=== PATIENT | female | born 1980 ===

== ENCOUNTER 2017-11-20 13:09 | Inpatient (IN) | payer OTHER ==
--- NOTE | 2017-11-20 14:10 | ED PDOC ---
HPI: General Adult Time Seen by Provider: 11/20/17 13:29 Chief Complaint (Nursing): Breast Problem Chief Complaint (Provider): Left Breast Pain and Swelling History Per: Patient History/Exam Limitations: no limitations Onset/Duration Of Symptoms: Days (x2 weeks) Current Symptoms Are (Timing): Still Present Additional Complaint(s): 36 year old female presents to the ED for evaluation of left sided breast pain and swelling for the last two weeks. She reports initially the symptoms were mild, but have continued and a scant brownish nipple discharge was pesent a couple days ago. Pt. denies fever, and denies any personal or family hx of breast, uterine, or ovarian cancer. PMD: none provided Past Medical History Reviewed: Historical Data, Nursing Documentation, Vital Signs Vital Signs: Last Vital Signs Temp 97 F L 11/20/17 13:20 Pulse 81 11/20/17 13:20 Resp 16 11/20/17 13:20 BP 108/72 11/20/17 13:20 Pulse Ox 99 11/20/17 13:20 - Medical History PMH: No Chronic Diseases - Surgical History Surgical History: No Surg Hx - Family History Family History: States: No Known Family Hx - Immunization History Hx Tetanus Toxoid Vaccination: No - Home Medications Home Medications: Ambulatory Orders Medication Instructions Recorded Cefpodoxime [Vantin] 200 mg PO BID #20 tab 10/26/17 Oseltamivir Phosphate [Tamiflu] 75 mg PO BID #10 capsule 10/26/17 RX: Acetaminophen [Pain Relief 500 mg PO QID PRN #30 tablet 10/26/17 Extra Strength] - Allergies Allergies/Adverse Reactions: Allergies Allergy/AdvReac Type Severity Reaction Status Date / Time No Known Allergies Allergy Verified 11/20/17 13:19 Review of Systems ROS Statement: Except As Marked, All Systems Reviewed And Found Negative Constitutional: Negative for: Fever Musculoskeletal: Positive for: Other (left sided breast pain and swelling with scant brown nipple discharge) Physical Exam - Reviewed Nursing Documentation Reviewed: Yes Vital Signs Reviewed: Yes - Physical Exam Appears: Positive for: No Acute Distress Head Exam: Positive for: ATRAUMATIC, NORMOCEPHALIC Skin: Positive for: Normal Color. Negative for: Rash Eye Exam: Positive for: Normal appearance Neck: Positive for: Normal, Painless ROM, Supple Cardiovascular/Chest: Positive for: Regular Rate, Rhythm Respiratory: Positive for: Normal Breath Sounds. Negative for: Accessory Muscle Use, Respiratory Distress Gastrointestinal/Abdominal: Positive for: Normal Exam, Soft. Negative for: Tenderness Back: Positive for: Normal Inspection Lymphatic: Negative for: Other (axillary lymphadenopathy) Neurologic/Psych: Positive for: Alert, Oriented (x3) Comments: Breast exam: Left breast negative for: peau d'orange, nipple drainage. Left breast positive for: large area of induration and tenderness with slight overlying erythema from 6 o clock to 9 o clock position. Right breast: wnl. No axillary lymphadenopathy bilaterally - Laboratory Results Result Diagrams: 11/20/17 14:24 11/20/17 14:24 - ECG O2 Sat by Pulse Oximetry: 99 (RA) Pulse Ox Interpretation: Normal Medical Decision Making Medical Decision Making: Time: 1347 Initial Impression: left breast pain Initial Plan: --US soft tissue complete --CMP --U-preg --CBC with differential 1614 US FINDINGS: Ultrasound examination of the left breast was performed in the region of palpable abnormality. The examination is performed from 6 2:11 o'clock along the medial aspect of the left breast. The diameter of the mid The examination demonstrates a hypoechoic fluid collection with internal debris, measuring approximately 6.1 x 2.5 x 6.1 cm. There is no peripheral hypervascularity. Nevertheless, differential diagnosis includes abscess or hematoma. This is not suspicious for neoplasm. No other solid or cystic mass is identified. No axillary lymphadenopathy is appreciated. IMPRESSION: Complex fluid collection with internal debris, 6.1 cm greatest dimension, in the medial left breast. No hypervascularity associated with this collection. Likely hematoma or abscess. BIRADS 2 Benign finding Recommendation: Continue annual screening mammography, as per ACR guidelines. 1648 Case discussed with surgical appliances salesperson. In conference, resident recommended calling surgical attending. Case discussed with Dr. Sandra (covering for ), recommended aspiration +/- I&D. vice president of software engineering can be consulted. 1700 Case discussed again, surgical appliances salesperson will evaluate pt. bedside. Pt. will be taken to OR under service of Dr. Van. IV zosyn given, wound cx sent. Scribe Attestation: Documented by Yuli Eli, acting as a scribe for Zayra Cancino PA-C. Provider Scribe Attestation: All medical record entries made by the Scribe were at my direction and personally dictated by me. I have reviewed the chart and agree that the record accurately reflects my personal performance of the history, physical exam, medical decision making, and the department course for this patient. I have also personally directed, reviewed, and agree with the discharge instructions and disposition. ---- Scribe Attestation: Documented by Amaris Garcia, acting as a scribe for Zayra Cancino PA-C. Provider Scribe Attestation: All medical record entries made by the Scribe were at my direction and personally dictated by me. I have reviewed the chart and agree that the record accurately reflects my personal performance of the history, physical exam, medical decision making, and the department course for this patient. I have also personally directed, reviewed, and agree with the discharge instructions and disposition. Disposition - Clinical Impression Clinical Impression: Abscess of breast - Patient ED Disposition Is Patient to be Admitted: Yes - Disposition Disposition Time: 22:00 Condition: STABLE
[2017-11-20 14:35] LABS: BASO % 0.3 % (0.0-2.0); EOS # 0.1 K/uL (0.0-0.7); EOS % 0.9 % (0.0-4.0); LYMPH # 1.5 K/uL (1.0-4.3); LYMPH % 24.2 % (20.0-40.0); MEAN CELL VOLUME 83.6 fl (81.0-99.0); MEAN CORPUSCULAR HEMOGLOBIN 29.2 pg (27.0-31.0); MEAN PLATELET VOLUME 8.6 fl (7.2-11.7); MONO # 0.5 K/uL (0.0-0.8); MONO % 7.7 % (0.0-10.0); NEUT # 4.1 K/uL (1.8-7.0); NEUT % 66.9 % (50.0-75.0); RBC 3.43 Mil/uL (3.80-5.20); RED CELL DISTRIBUTION WIDTH 13.4 % (11.5-14.5); WHITE BLOOD COUNT 6.1 K/uL (4.8-10.8)
[2017-11-20 14:42] LABS: ALB/GLOB RATIO 1.1 (1.0-2.1); ALBUMIN 4.2 g/dL (3.5-5.0); ALT/SGPT 23 U/L (9-52); AST/SGOT 28 U/L (14-36); BLOOD UREA NITROGEN 18 mg/dl (7-17); CALCIUM 9.2 mg/dL (8.4-10.2); GFR NON-AFRICAN AMERICAN > 60
--- NOTE | 2017-11-20 16:16 | US ---
Date of service: 11/20/2017 PROCEDURE: Ultrasound left breast HISTORY: LEFT BREAST SWELLING/TENDERNESS 6-9 O'CLOCK POSITI COMPARISON: Not available TECHNIQUE: Targeted examination left breast, area of palpable abnormality FINDINGS: Ultrasound examination of the left breast was performed in the region of palpable abnormality. The examination is performed from 6 2:11 o'clock along the medial aspect of the left breast. The diameter of the mid The examination demonstrates a hypoechoic fluid collection with internal debris, measuring approximately 6.1 x 2.5 x 6.1 cm. There is no peripheral hypervascularity. Nevertheless, differential diagnosis includes abscess or hematoma. This is not suspicious for neoplasm. No other solid or cystic mass is identified. No axillary lymphadenopathy is appreciated. IMPRESSION: Complex fluid collection with internal debris, 6.1 cm greatest dimension, in the medial left breast. No hypervascularity associated with this collection. Likely hematoma or abscess. BIRADS 2 Benign finding Recommendation: Continue annual screening mammography, as per ACR guidelines.
[2017-11-20] MEDS ORDERED: Lidocaine PF 2% (5 ml) Inj (For Cardiac Arrhy) ONE (19:48)
[2017-11-20] MEDS ORDERED: Propofol 10 mg/ml Inj (20 ML) ONE (20:36)
[2017-11-20] MEDS ORDERED: Midazolam 2 MG/2 ML VIAL ONE (20:36)
[2017-11-20] MEDS ORDERED: Lidocaine 1% 5ml Abboject ONE (20:37)
[2017-11-20] MEDS ORDERED: Lidocaine 2% Jelly (5 ml) TOP ONE (20:37)
[2017-11-20] MEDS ORDERED: Desflurane Inhalation Anesthetic Liq (240 ml) ONE (20:39)
[2017-11-20] MEDS ORDERED: Piperacillin/Tazobact 3.375 gm Inj IVPB ONE (20:47)
--- NOTE | 2017-11-20 22:34 | CP.PCM.HP ---
<Leighann Swenson - Last Filed: 11/20/17 22:30> History of Present Illness - History of Present Illness History of Present Illness: Surgery: Dr. Van Pt is a 36F with no PMHx who presented to [facility] with Left breast pain/mass x 2 weeks. Pt states that she felt a small lump on her left breast 2 weeks ago and went to an urgent care center where she was evaluated and told to apply warm compresses as it was likely a benign mass. However, over the last 2 weeks pt noticed increasing in the size of the mass with surrounding pain especially upon palpation. Pt also reports fevers, however states she also had the flu last week. States she has never had this problem before and denies any trauma to the left breast. In the ER, pt had an US of the left breast which showed fluid collection 6.1 x 2.5 x 6.1cm at the 9'oclock position, likely abscess vs hematoma, BiRADS 2. Surgery called to evaluate. Currently, pt is comfortably lying in ER bed. Denies any other complaints except for pain around the left breast abscess. Denies fevers/chills, nausea/vomiting, chest pain or SOB. Pt denies ever getting a mammogram. Denies family hx of breast cancer. PMHx: denies PSHx: denies SocialHx: denies smoking/EtOH/drugs NKDA Present on Admission - Present on Admission Any Indicators Present on Admission: No Review of Systems - Review of Systems All systems: reviewed and no additional remarkable complaints except (as per HPI) Past Patient History - Infectious Disease Hx of Infectious Diseases: None - Past Social History Smoking Status: Never Smoked - PSYCHIATRIC Hx Substance Use: No - SURGICAL HISTORY Hx Surgeries: No - ANESTHESIA Hx Anesthesia: No Meds Allergies/Adverse Reactions: Allergies Allergy/AdvReac Type Severity Reaction Status Date / Time No Known Allergies Allergy Verified 11/20/17 13:19 Physical Exam - Constitutional Appears: Well, No Acute Distress - Head Exam Head Exam: ATRAUMATIC, NORMOCEPHALIC - Eye Exam Eye Exam: Normal appearance - ENT Exam ENT Exam: Mucous Membranes Moist - Respiratory Exam Respiratory Exam: NORMAL BREATHING PATTERN - Cardiovascular Exam Cardiovascular Exam: RRR - GI/Abdominal Exam GI & Abdominal Exam: Soft. absent: Tenderness - Neurological Exam Neurological exam: Alert, Oriented x3 - Skin Skin Exam: Dry, Warm - Additional Findings Additional findings: Breast Exam: Left breast with fluctuant collection 4x6cm noted at 9'o clock position, with some surrounding induration. No erythema or drainage appreciated. No axillary lymphadenopathy. R breast exam normal Results - Vital Signs Recent Vital Signs: Last Vital Signs Temp 97 F L 11/20/17 13:20 Pulse 81 11/20/17 13:20 Resp 16 11/20/17 13:20 BP 108/72 11/20/17 13:20 Pulse Ox 99 11/20/17 18:26 - Labs Result Diagrams: 11/20/17 14:24 11/20/17 14:24 Labs: Laboratory Results - last 24 hr 11/20/17 11/20/17 14:24 14:24 WBC 6.1 RBC 3.43 L Hgb 10.0 L Hct 28.7 L MCV 83.6 MCH 29.2 MCHC 35.0 RDW 13.4 Plt Count 275 MPV 8.6 Neut % (Auto) 66.9 Lymph % (Auto) 24.2 [place] % (Auto) 7.7 Eos % (Auto) 0.9 Baso % (Auto) 0.3 Neut # (Auto) 4.1 Lymph # (Auto) 1.5 [place] # (Auto) 0.5 Eos # (Auto) 0.1 Baso # (Auto) 0.0 Sodium 142 Potassium 4.4 Chloride 103 Carbon Dioxide 29 Anion Gap 14 BUN 18 H Creatinine 0.6 L Est GFR ( Amer) > 60 Est GFR (Non-Af Amer) > 60 Random Glucose 94 Calcium 9.2 Total Bilirubin 0.3 AST 28 ALT 23 Alkaline Phosphatase 72 Total Protein 7.9 Albumin 4.2 Globulin 3.7 Albumin/Globulin Ratio 1.1 - Imaging and Cardiology US L breast Status: Image reviewed by me, Report reviewed by me Assessment & Plan - Assessment and Plan (Free Text) Assessment: 36F with Left Breast Abscess Plan: - After local lidocaine infiltration, an 18 gauge needle was used to aspirate 18cc of purulent fluid from L breast abscess - plan to take to OR for I&D and debridement - Keep NPO - IVF, IV ABX - d/w Dr. Carlota Swenson <Larry Van - Last Filed: 11/20/17 22:45> History of Present Illness - History of Present Illness History of Present Illness: Patient was seen and examined at the bedside. Agree with resident's note above. Results - Vital Signs Recent Vital Signs: Last Vital Signs Temp 97 F L 11/20/17 13:20 Pulse 81 11/20/17 13:20 Resp 16 11/20/17 13:20 BP 108/72 11/20/17 13:20 Pulse Ox 99 11/20/17 18:26 - Labs Result Diagrams: 11/20/17 14:24 11/20/17 14:24 Labs: Laboratory Results - last 24 hr 11/20/17 11/20/17 14:24 14:24 WBC 6.1 RBC 3.43 L Hgb 10.0 L Hct 28.7 L MCV 83.6 MCH 29.2 MCHC 35.0 RDW 13.4 Plt Count 275 MPV 8.6 Neut % (Auto) 66.9 Lymph % (Auto) 24.2 [place] % (Auto) 7.7 Eos % (Auto) 0.9 Baso % (Auto) 0.3 Neut # (Auto) 4.1 Lymph # (Auto) 1.5 [place] # (Auto) 0.5 Eos # (Auto) 0.1 Baso # (Auto) 0.0 Sodium 142 Potassium 4.4 Chloride 103 Carbon Dioxide 29 Anion Gap 14 BUN 18 H Creatinine 0.6 L Est GFR ( Amer) > 60 Est GFR (Non-Af Amer) > 60 Random Glucose 94 Calcium 9.2 Total Bilirubin 0.3 AST 28 ALT 23 Alkaline Phosphatase 72 Total Protein 7.9 Albumin 4.2 Globulin 3.7 Albumin/Globulin Ratio 1.1
[2017-11-20] MEDS ORDERED: Bupivacaine HCl 0.25% PF (30 ml) Inj ONE (22:47)
[2017-11-20] MEDS ORDERED: Bupivacaine 0.25% Inj(30mL) IJ ONE (22:54)
[2017-11-20] MEDS ORDERED: Lactated Ringer's 1,000 ML IV ONE (23:00)
[2017-11-20] MEDS: Lactated Ringer's 1,000 ML IV SCH (23:15)
--- NOTE | 2017-11-20 23:16 | PCM.SURG1 ---
<Leighann Swenson - Last Filed: 11/20/17 23:15> Surgeon's Initial Post Op Note - Surgeon's Notes Surgeon: Dr. Van Truck Headlight Assembler: Dr. Swenson PGY-3 Type of Anesthesia: IV Sedation Anesthesia Administered By: Dr. Holm Pre-Operative Diagnosis: Left breast abscess Operative Findings: Infected hematoma Post-Operative Diagnosis: Same Operation Performed: Incision & Drainage of Left breast infected hematoma Specimen/Specimens Removed: Breast tissue, hematoma Estimated Blood Loss: EBL {In ML}: 15 Blood Products Given: N/A Drains Used: No Drains Post-Op Condition: Good Date of Surgery/Procedure: 11/20/17 Time of Surgery/Procedure: 23:16 <Larry Van - Last Filed: 11/20/17 23:24> Surgeon's Initial Post Op Note - Surgeon's Notes Estimated Blood Loss: EBL {In ML}: 10
[2017-11-20] MEDS ORDERED: HYDROmorphone 0.5 mg/0.5 ml ISec IVP PRN (23:17)
[2017-11-20] MEDS ORDERED: Oxycodone/Acetaminophen 5/325 mg Tab PO PRN (23:17)
[2017-11-21 01:13] VITALS: RESP 19
[2017-11-21] MEDS: Piperacillin/Tazobact 3.375 GM in Sodium Chloride 0.9% 100 ML IVPB SCH ×2 (04:44→09:53)
[2017-11-21] MEDS: Lactated Ringer's 1,000 ML IV SCH (05:11)
[2017-11-21 06:17] LABS: HEMOGLOBIN 10.3 g/dL (12.0-16.0); MEAN CELL VOLUME 84.1 fl (81.0-99.0); MEAN CORPUSCULAR HEMOGLOBIN 28.8 pg (27.0-31.0); MEAN CORPUSCULAR HGB CONC 34.2 g/dL (33.0-37.0); RBC 3.57 Mil/uL (3.80-5.20); RED CELL DISTRIBUTION WIDTH 13.1 % (11.5-14.5); WHITE BLOOD COUNT 6.2 K/uL (4.8-10.8)
[2017-11-21 08:10] VITALS: BP 110/70; PULSE 65; TEMP 98.4; O2SAT 100
--- NOTE | 2017-11-21 08:29 | OP ---
PROCEDURE DATE: 11/20/17 PREOPERATIVE DIAGNOSIS: Left breast abscess. POSTOPERATIVE DIAGNOSIS: Left breast infected hematoma. SURGEON: Larry Van MD CLAY PRESS OPERATOR: Leighann Swenson DO SURGERY: Incision and drainage of the left breast abscess. ANESTHESIA: Local with sedation. INTRAVENOUS FLUIDS: Crystalloids. ESTIMATED BLOOD LOSS: 10 mL. INTRAOPERATIVE FINDINGS: Left breast infected hematoma and expressed about 20 mL of purulent material. SPECIMEN: Junks of the hematoma. BRIEF HISTORY: Mrs. Reid is a very pleasant 36-year-old female who came to the hospital, complaining of left breast swelling and pain for a duration of two weeks and upon further investigation of ultrasound, the patient was found to have a 6-cm abscess in the left breast. All the risks and benefits of the procedure were explained to the patient. With the patient having a full understanding all the risks and benefits involved, informed consent was obtained and the patient was taken to the operating room for above stated procedure. DESCRIPTION OF PROCEDURE: The patient was brought into the operating room and placed supine on the operating table. Bilateral Flowtron boots were applied to the patient's lower extremities. After successful IV sedation, the patient's left chest and breast were prepped with ChloraPrep stick and draped in a standard surgical fashion. Prior to the beginning of the procedure, a time-out was called in the room and everyone in the room were in agreement. Using a 15-blade scalpel knife, approximately 1.5-cm incision was made in the transverse fashion right in the top of the fluctuant area. Subsequent to that, abscess cavity was entered and loculations of the abscess cavity were broken down with finger dissection. Once this was accomplished, I was able to express approximately 20 mL of purulent material as well as what appeared to be infected hematoma. Some junks of the hematoma were sent as a specimen to Pathology. Subsequent to that, the patient's abscess cavity was copiously irrigated with sterile saline, and the fluid was suctioned out. At this point in time, the abscess cavity was tightly packed with 0.25-inch Iodoform packing. At this point in time, the patient's breast was washed and dried. Prior to the beginning of the procedure, the area around the fluctuance of the breast was infiltrated with Marcaine anesthetic. Once the procedure was over, the patient's breast was washed and dried, and clean dressing with 4 x 4s and some tape were applied to the site of the incision. The patient was successfully transferred to the stretcher and taken to the recovery room in a stable condition. At the end of the procedure, all instrument counts, needles and sponges were correct. Larry Van MD
--- NOTE | 2017-11-21 10:30 | CP.PCM.PN ---
<Daljit Ramírez - Last Filed: 11/21/17 11:23> Subjective - Date & Time of Evaluation Date of Evaluation: 11/21/17 Time of Evaluation: 10:28 - Subjective Subjective: Surgery: Dr. Van Pt seen and examined. Resting comfortably in bed. No acute events overnight. Pain controlled. No complaints. Objective - Vital Signs/Intake and Output Vital Signs (last 24 hours): Temp Pulse Resp BP Pulse Ox 98.4 F 65 19 110/70 100 11/21/17 08:09 11/21/17 08:09 11/21/17 08:09 11/21/17 08:09 11/21/17 08:09 Intake and Output: 11/21/17 11/21/17 06:59 18:59 Intake Total 400 Balance 400 - Medications Medications: Current Medications Lactated Ringer's (Lactated Ringer's) 1,000 mls @ 100 mls/hr IV .Q10H KATI Last Admin: 11/21/17 05:11 Dose: 100 mls/hr Piperacillin Sod/Tazobactam (Sod 3.375 gm/ Sodium Chloride) 100 mls @ 100 mls/hr IVPB Q6 KATI; Protocol Last Admin: 11/21/17 09:53 Dose: 100 mls/hr Morphine Sulfate (Morphine) 2 mg IVP Q4 PRN PRN Reason: Pain, severe (8-10) Last Admin: 11/21/17 07:47 Dose: 2 mg Oxycodone/Acetaminophen (Percocet 5/325 Mg Tab) 1 tab PO Q4 PRN PRN Reason: Pain, moderate (4-7) Stop: 11/23/17 23:18 - Labs Labs: 11/21/17 05:30 11/20/17 14:24 - Constitutional Appears: Non-toxic, No Acute Distress - Head Exam Head Exam: ATRAUMATIC, NORMOCEPHALIC - Eye Exam Eye Exam: EOMI - ENT Exam ENT Exam: Mucous Membranes Moist, Normal External Ear Exam - Neck Exam Neck Exam: Full ROM - Respiratory Exam Respiratory Exam: NORMAL BREATHING PATTERN. absent: Accessory Muscle Use, Respiratory Distress - GI/Abdominal Exam GI & Abdominal Exam: Soft. absent: Tenderness - Extremities Exam Extremities Exam: absent: Calf Tenderness - Neurological Exam Neurological Exam: Alert, Awake, Oriented x3 - Skin Additional comments: L breast abscess, s/p I&D, no purulent drainage, no erythema, mildly tender, no induration/fluctuance Assessment and Plan - Assessment and Plan (Free Text) Assessment: 36F w. L breast abscess, s/p I&D, POD#1 -Packing removed at bedside -Pt clear for D/C -Augmentin for 1 week -Tylenol/advil for pain -follow up in office 1-2 weeks -d/w attending Darrell PGY4 <Larry Van - Last Filed: 11/21/17 11:35> Subjective - Subjective Subjective: Patient was seen and examined at the bedside. Agree with resident's note above. Objective - Vital Signs/Intake and Output Vital Signs (last 24 hours): Temp Pulse Resp BP Pulse Ox 98.4 F 65 19 110/70 100 11/21/17 08:09 11/21/17 08:09 11/21/17 08:09 11/21/17 08:09 11/21/17 08:09 Intake and Output: 11/21/17 11/21/17 06:59 18:59 Intake Total 400 Balance 400 - Medications Medications: Current Medications Lactated Ringer's (Lactated Ringer's) 1,000 mls @ 100 mls/hr IV .Q10H KATI Last Admin: 11/21/17 05:11 Dose: 100 mls/hr Piperacillin Sod/Tazobactam (Sod 3.375 gm/ Sodium Chloride) 100 mls @ 100 mls/hr IVPB Q6 KATI; Protocol Last Admin: 11/21/17 09:53 Dose: 100 mls/hr Morphine Sulfate (Morphine) 2 mg IVP Q4 PRN PRN Reason: Pain, severe (8-10) Last Admin: 11/21/17 07:47 Dose: 2 mg Oxycodone/Acetaminophen (Percocet 5/325 Mg Tab) 1 tab PO Q4 PRN PRN Reason: Pain, moderate (4-7) Stop: 11/23/17 23:18 - Labs Labs: 11/21/17 05:30 11/20/17 14:24
--- NOTE | 2017-11-21 11:33 | CP.PCM.DIS ---
Provider - Provider Date of Admission: 11/20/17 20:40 Attending physician: Larry Van MD Time Spent in preparation of Discharge (in minutes): 30 Diagnosis - Discharge Diagnosis (1) Abscess of breast Status: Acute Hospital Course - Lab Results Lab Results: Most Recent Lab Values WBC 6.2 K/uL (4.8-10.8) 11/21/17 05:30 RBC 3.57 Mil/uL (3.80-5.20) L 11/21/17 05:30 Hgb 10.3 g/dL (12.0-16.0) L 11/21/17 05:30 Hct 30.1 % (34.0-47.0) L 11/21/17 05:30 MCV 84.1 fl (81.0-99.0) 11/21/17 05:30 MCH 28.8 pg (27.0-31.0) 11/21/17 05:30 MCHC 34.2 g/dL (33.0-37.0) 11/21/17 05:30 RDW 13.1 % (11.5-14.5) 11/21/17 05:30 Plt Count 262 K/uL (130-400) 11/21/17 05:30 MPV 8.6 fl (7.2-11.7) 11/20/17 14:24 Neut % (Auto) 66.9 % (50.0-75.0) 11/20/17 14:24 Lymph % (Auto) 24.2 % (20.0-40.0) 11/20/17 14:24 [place] % (Auto) 7.7 % (0.0-10.0) 11/20/17 14:24 Eos % (Auto) 0.9 % (0.0-4.0) 11/20/17 14:24 Baso % (Auto) 0.3 % (0.0-2.0) 11/20/17 14:24 Neut # (Auto) 4.1 K/uL (1.8-7.0) 11/20/17 14:24 Lymph # (Auto) 1.5 K/uL (1.0-4.3) 11/20/17 14:24 [place] # (Auto) 0.5 K/uL (0.0-0.8) 11/20/17 14:24 Eos # (Auto) 0.1 K/uL (0.0-0.7) 11/20/17 14:24 Baso # (Auto) 0.0 K/uL (0.0-0.2) 11/20/17 14:24 Sodium 142 mmol/l (132-148) 11/20/17 14:24 Potassium 4.4 MMOL/L (3.6-5.0) 11/20/17 14:24 Chloride 103 mmol/L (98-107) 11/20/17 14:24 Carbon Dioxide 29 mmol/L (22-30) 11/20/17 14:24 Anion Gap 14 (10-20) 11/20/17 14:24 BUN 18 mg/dl (7-17) H 11/20/17 14:24 Creatinine 0.6 mg/dl (0.7-1.2) L 11/20/17 14:24 Est GFR ( Amer) > 60 11/20/17 14:24 Est GFR (Non-Af Amer) > 60 11/20/17 14:24 Random Glucose 94 mg/dL (65-105) 11/20/17 14:24 Calcium 9.2 mg/dL (8.4-10.2) 11/20/17 14:24 Total Bilirubin 0.3 mg/dl (0.2-1.3) 11/20/17 14:24 AST 28 U/L (14-36) 11/20/17 14:24 ALT 23 U/L (9-52) 11/20/17 14:24 Alkaline Phosphatase 72 U/L (38-126) 11/20/17 14:24 Total Protein 7.9 G/DL (6.3-8.2) 11/20/17 14:24 Albumin 4.2 g/dL (3.5-5.0) 11/20/17 14:24 Globulin 3.7 gm/dL (2.2-3.9) 11/20/17 14:24 Albumin/Globulin Ratio 1.1 (1.0-2.1) 11/20/17 14:24 - Hospital Course Hospital Course: 36F presented to ED w. L breast abscess, underwent I&D, post-op course uncomplicated, pt has no complaints. Pt clear for D/C. Discharge Exam - Head Exam Head Exam: ATRAUMATIC, NORMOCEPHALIC - Eye Exam Eye Exam: EOMI - ENT Exam ENT Exam: Mucous Membranes Moist - Neck Exam Neck exam: Full Rom - Respiratory Exam Respiratory Exam: NORMAL BREATHING PATTERN. absent: Accessory Muscle Use, Respiratory Distress - GI/Abdominal Exam GI & Abdominal Exam: Soft. absent: Distended, Firm, Guarding, Rigid, Tenderness - Neurological Exam Neurological exam: Alert, Oriented x3 - Skin Additional comments: L breast s/p I&D, no purulent drainage, mildly tender, no erythema, no induration/fluctuance Discharge Plan - Discharge Medications Prescriptions: Amoxicillin/Clavulanate [Augmentin 875 MG-125 MG] 1 tab PO Q12 7 Days #14 tab - Follow Up Plan Condition: STABLE Disposition: HOME/ ROUTINE Patient education suggested?: Yes Instructions: Breast Abscess Drainage (DC) Additional Instructions: Follow up in office 1-2 weeks Take antibiotics as directed Tylenol/Advil for pain Return to ED if symptoms worsen Referrals: Larry Van MD [Staff Provider] -
== END 2017-11-21 14:05 | disposition home or self-care (01) | DRG 276 ==
LOC: H.ER 13:09 → H.ERHOLD 20:40 → H.MEDSURG1 11-21 00:09
PROVIDERS: ADMIT Surgery; ATTEND Surgery
PROC: 0H9UXZZ (ICD-10-PCS; 2017-11-20)
PROC: 0H9U3ZZ Drainage of Left Breast, Percutaneous Approach (ICD-10-PCS; principal; 2017-11-20 22:30)
DX: N61.1 Abscess of the breast and nipple (principal); N64.89 Other specified disorders of breast